=== PATIENT | female | born 1985 | race African-American/Black ===

== ENCOUNTER 2021-06-05 15:07 | Emergency (ER) | payer OTHER ==
[~2021-06-05] VITALS: Ht 162.6 cm; Wt 155.0 kg
--- NOTE | 2021-06-05 15:26 | PHYS DOC ---
General Adult EDM: Chief Complaint: MECHANICAL FALL HPI: HPI: Patient is a 35 year old female who presents with was at [employer] in the swimming area when she slipped and fell hurting her right ankle and left hip. She states that she can put some pressure on both extremities it is painful. Patient has left sharp shooting pain that goes from the left hip down into the thigh area. She has some pain right in the right ankle area with 2+ swelling. Rating her pain an 8 out of 10 at this time. Denies hitting her head, neck pain, back pain, dizziness, headache, focal weakness, numbness or tingling. Review of Systems: Review of Systems: Constitutional: Denies fever or chills. [] Eyes: Denies change in visual acuity. [] HENT: Denies nasal congestion or sore throat. [] Respiratory: Denies cough or shortness of breath. [] Cardiovascular: Denies chest pain or + right ankle edema. [] GI: Denies abdominal pain, nausea, vomiting, bloody stools or diarrhea. [] : Denies dysuria. [] Musculoskeletal: Denies back pain or + right ankle joint pain. + Left hip with sharp shooting pain down into the thigh [] Integument: Denies rash. [] Neurologic: Denies headache, focal weakness or sensory changes. [] Endocrine: Denies polyuria or polydipsia. [] Lymphatic: Denies swollen glands. [] Psychiatric: Denies depression or anxiety. [] Heart Score: C/O Chest Pain: No Current Medications: Current Medications Medications (Trade) Dose Ordered Sig/[facility] Start Time Stop Time Status Last Admin Dose Admin Acetaminophen/ Hydrocodone Bitart (Lortab 5/325) 1 tab 1X ONCE 06/05/21 15:30 06/05/21 15:31 UNV Physical Exam: PE: Constitutional: Well developed, well nourished, no acute distress, non-toxic appearance. [] HENT: Normocephalic, atraumatic, bilateral external ears normal, oropharynx moist, no oral exudates, nose normal. [] Eyes: PERRLA, EOMI, conjunctiva normal, no discharge. [] Neck: Normal range of motion, no tenderness, supple, no stridor. [] Cardiovascular:Heart rate regular rhythm, no murmur [] Lungs & Thorax: Bilateral breath sounds clear to auscultation [] Abdomen: Bowel sounds normal, soft, no tenderness, no masses, no pulsatile masses. [] Skin: Warm, dry, no erythema, no rash. [] Back: No tenderness, no CVA tenderness. [] Extremities: Right lateral ankle tenderness, no cyanosis, no clubbing, ROM intact but limited due to pain and swelling, 2+ edema. No hip or pelvis tenderness. Full range of motion at the left hip joint. No laxity or deformity. [] Neurologic: Alert and oriented X 3, normal motor function, normal sensory function, no focal deficits noted. [] Psychologic: Affect normal, judgement normal, mood normal. [] EKG: EKG: [] Radiology/Procedures: Radiology/Procedures: [] Impression: [facility] [address] [place] [address] IMAGING REPORT Signed PATIENT: MINDA NOEL ACCOUNT: [id number] : 1985 LOCATION: ER AGE: 35 SEX: F EXAM STATUS: REG ER ORD. PHYSICIAN: RONALD BREWSTER APRN REASON: [place] AND FELL [place], PAIN- ICE PACK ON ANKLE PROCEDURE: ANKLE RIGHT 3V EXAM: Right ankle, 3 views; pelvis and left hip, 3 views. HISTORY: Fall. COMPARISON: None. FINDINGS: Right ankle: 3 views of the right ankle are obtained. There is no acute fract ure, dislocation or subluxation. There is a small plantar spur. There is lateral predominant ankle soft tissue swelling. Pelvis and left hip: A frontal view the pelvis and 2 views of the left hip are obtained. There is no acute fracture, dislocation or subluxation. The femoral heads are normal in configuration. IMPRESSION: No acute osseous finding. Electronically signed by: Mallory Lopez MD (06/05/2021 3:51 PM) [id number] DICTATED and SIGNED BY: MALLORY LOPEZ MD DATE: 06/05/21 [id number] 0 Course & Med Decision Making: Course & Med Decision Making Pertinent Labs and Imaging studies reviewed. (See chart for details) See HPI. Speaks in full clear sentences. No left hip joint deformity, swelling or tenderness with palpation. There is no bruising or laceration or abrasion to the area. No focal bony spinal tenderness. No tenderness to the left leg. She does have full range of motion of that left hip joint but is painful. She states is more painful to put pressure on it. Patient has right ankle 2+ swelling and range of motion is limited due to swelling and some pain. Pedal pulse strong and present bilaterally. Cap refill less than 2 seconds bilaterally. Sensations intact. X-ray shows no acute findings. Patient's left ankle is put in an air splint and Jon wrap. Patient is able to stand and ambulate. [] Dragon Disclaimer: [employer] Disclaimer: This electronic medical record was generated, in whole or in part, using a voice recognition dictation system. Departure Departure Impression: Primary Impression: Hip pain, left Additional Impression: Ankle pain, right Qualified Codes: M25.571 - Pain in right ankle and joints of right foot Disposition: HOME / SELF CARE / HOMELESS Condition: STABLE Referrals: MARVEL BABB Jr. DO Patient Instructions: Ankle Sprain, Hip Pain, Sciatica with Rehab-SportsMed Additional Instructions: Follow-up with primary care provider or orthopedic as soon as possible. Drink plenty of fluids. Use ice and elevation or heating pad. Take medication as prescribed. If your symptoms worsen he knows return to the emergency room. Scripts Cyclobenzaprine Hcl (CYCLOBENZAPRINE HCL) 10 Mg Tablet 1 TAB PO TID, #15 TAB Prov: RONALD BREWSTER APRN 06/05/21 Ibuprofen (IBUPROFEN) 600 Mg Tablet 600 MG PO PRN Q6HRS PRN for INFLAMMATION, #30 TAB Prov: RONALD BREWSTER APRN 06/05/21 RONALD BREWSTER APRN Jun 05, 2021 15:26
[2021-06-05] MEDS ORDERED: HYDROcodone/APAP 5/325MG 1 TAB TABLET PO ONE (15:30)
--- NOTE | 2021-06-05 15:53 | RAD ---
EXAM: Right ankle, 3 views; pelvis and left hip, 3 views. HISTORY: Fall. COMPARISON: None. FINDINGS: Right ankle: 3 views of the right ankle are obtained. There is no acute fracture, dislocation or subl uxation. There is a small plantar spur. There is lateral predominant ankle soft tissue swelling. Pelvis and left hip: A frontal view the pelvis and 2 views of the left hip are obtained. There is no acute fracture, dislocation or subluxation. The femoral heads are normal in configuration. IMPRESSION: No acute osseous finding. Electronically signed by: Julissa Baxter MD (06/05/2021 3:51 PM) [id number]
[2021-06-05] MEDS ORDERED: IBUPROFEN 200 MG TABLET. PO ONE (16:00)
[2021-06-05] MEDS ORDERED: IBUP-1007 PO (16:29)
[2021-06-05 16:47] VITALS: BP 146/84
[2021-06-05] MEDS ORDERED: CYCL10TA19 PO (16:52)
== END 2021-06-05 16:58 | disposition home or self-care (01) ==
LOC: ER 15:07
DX: M25.571 Pain in right ankle and joints of right foot (principal); M25.552 Pain in left hip; G89.11 Acute pain due to trauma; W01.0XXA Fall on same level from slipping, tripping and stumbling without subsequent striking against object, initial encounter; Y93.89 Activity, other specified; Y92.89 Other specified places as the place of occurrence of the external cause; Y99.8 Other external cause status
CPT/HCPCS: 29515; 73502; 73610; A6450; 99284-25